=== PATIENT | male | born 1950 | race Caucasian/White ===

== ENCOUNTER → 2020-01-16 | Outpatient (CLI) | payer BC ==
[~2020-01-16] VITALS: Ht 175 cm; Wt 96.0 kg
[~2020-01-16] MED LIST: CATHETER FLUSH 10 ML SYR IV PRN; REGADENOSON 0.4 MG/5 ML SYR (LEXISCAN) IV ONE
[2020-01-16 13:25] VITALS: BP 171/99
--- NOTE | 2020-01-16 17:39 | Cardiology Stress Test Report ---
Stress Test Report Date of Procedure/Referring: Date of Procedure: Jan 16, 2020 PCP Page Perdomo MD Admitting Physician No,Local Physician Indications: Hypertension Baseline Heart Rate: 68 Baseline Blood Pressure: Blood Pressure Systolic: 171 Blood Pressure Diastolic: 99 Baseline Vitals Vital Signs Date Time Temp Pulse Resp B/P (MAP) Pulse Ox O2 Delivery O2 Flow Rate FiO2 01/16/20 13:25 68 171/99 (123) 98 Baseline EKG: Baseline EKG: atrial flutter with controlled rate Summary After explaining the procedure to the patient, he signed a consent and then brought to the stress nuclear laboratory. Patient received 0.4 mg Lexiscan for stress test, ECG, heart rate and blood pressure were monitored continuously. Resting and stress dose of radio tracer were injected, imaging was acquired and reviewed in short axis, horizontal long axis and vertical long axis views. TID: 1.06 SSS: 2 SDS: 2 EF: 64 1. Patient tolerated Lexiscan well 2. No significant ischemia or infarction on SPECT images 3. Normal left ventricular size, EF 64 percent 4. Atrial flutter as a baseline EKG with controlled rate PAGE PERDOMO MD Jan 16, 2020 17:39
== END ==
LOC: CARD 12:00
PROVIDERS: ATTEND Internal Medicine Cardiovascular Disease
DX: I10 Essential (primary) hypertension (principal); I48.92 Unspecified atrial flutter; E78.5 Hyperlipidemia, unspecified; E11.69 Type 2 diabetes mellitus with other specified complication
CPT/HCPCS: 78452; 93017; 93306; A9502